=== PATIENT | male | born 1980 | race Caucasian/White ===

== ENCOUNTER 2019-01-12 04:34 | Emergency (ER) | payer BC ==
--- NOTE | 2019-01-12 05:11 | EDM.PDOC ---
ED HPI GENERAL MEDICAL PROBLEM - General Chief Complaint: General Stated Complaint: sore throat, cough Time Seen by Provider: 01/12/19 04:55 Source of Information: Reports: Patient History Limitations: Reports: No Limitations - History of Present Illness INITIAL COMMENTS - FREE TEXT/NARRATIVE: Patient comes to ER with complaint of sore throat. Present for about 3 days. Main complaint is the sore throat. Does not have much of a cough most of the time. No fevers/chills. No GI changes/nausea/diarrhea. No other pain complaint. No significant congestion. No change in hearing or ear discomfort. No other acute changes. Has taken some OTC Robitussin that "helped a bit". Treatments DATA CONVERSION DEVELOPER: Reports: Other Medication(s), Other (see below) Other Treatments DATA CONVERSION DEVELOPER: OTC meds for pain and cough/cold Throat Pain Score (Numeric/FACES): 5 - Related Data Allergies Allergy/AdvReac Type Severity Reaction Status Date / Time No Known Allergies Allergy Verified 01/12/19 04:37 Home Meds: Home Meds Acetaminophen/Codeine [Tylenol with Codeine No.3 300MG/30MG] 1 tab PO Q6H PRN # 7 tab 01/12/19 [Rx] Benzonatate [Tessalon Perle] 100 mg PO Q8H PRN #21 capsule 01/12/19 [Rx] Cholecalciferol (Vitamin D3) [Vitamin D3] 1,000 unit PO DAILY 01/12/19 [History] DULoxetine [Cymbalta] 60 mg PO DAILY 01/12/19 [History] Multivitamin [Multi-Vitamin Daily] 1 each PO DAILY 01/12/19 [History] Preemption-3/DHA/Epa/Fish Oil [Fish Oil 1,000 mg Softgel] 1 each PO DAILY 01/12/19 [ History] buPROPion HCl [Wellbutrin Xl] 300 mg PO DAILY 01/12/19 [History] busPIRone [Buspar] 30 mg PO BID 01/12/19 [History] Past Medical History HEENT History: Reports: Impaired Vision Cardiovascular History: Reports: None Respiratory History: Reports: None Gastrointestinal History: Reports: None Genitourinary History: Reports: None Musculoskeletal History: Reports: Fracture, Other (See Below) Other Musculoskeletal History: history left clavicular fracture Neurological History: Reports: None Psychiatric History: Reports: Anxiety, Depression, Psych Hospitalization(s) Endocrine/Metabolic History: Reports: None Hematologic History: Reports: None Immunologic History: Reports: None Oncologic (Cancer) History: Reports: None Dermatologic History: Reports: None - Infectious Disease History Infectious Disease History: Reports: Chicken Pox - Past Surgical History HEENT Surgical History: Reports: Oral Surgery Cardiovascular Surgical History: Reports: None Respiratory Surgical History: Reports: None GI Surgical History: Reports: None Musculoskeletal Surgical History: Reports: None Social & Family History - Tobacco Use Smoking Status *Q: Never Smoker - Caffeine Use Caffeine Use: Reports: Energy Drinks - Recreational Drug Use Recreational Drug Use: No ED ROS GENERAL - Review of Systems Review Of Systems: Comprehensive ROS is negative, except as noted in HPI. ED EXAM, GENERAL - Physical Exam Exam: See Below Exam Limited By: No Limitations General Appearance: Alert, WD/WN, No Apparent Distress, Other (laying on side resting in ER bed) Eye Exam: Bilateral Eye: EOMI, PERRL Ears: Normal External Exam, Normal Canal, Hearing Grossly Normal, Normal TMs Nose: No: Nasal Drainage Throat/Mouth: Normal Inspection, Normal Lips, Normal Oropharynx, Normal Voice, No Airway Compromise Head: Atraumatic, Normocephalic Neck: Normal Inspection, Supple, Non-Tender, Full Range of Motion. No: Lymphadenopathy (L), Lymphadenopathy (R) Respiratory/Chest: No Respiratory Distress, Lungs Clear, Normal Breath Sounds, No Accessory Muscle Use Cardiovascular: Regular Rate, Rhythm, No Murmur Peripheral Pulses: 2+: Radial (L), Radial (R) GI/Abdominal: Normal Bowel Sounds, Soft, Non-Tender, No Distention (Male) Exam: Deferred Rectal (Males) Exam: Deferred Back Exam: No: CVA Tenderness (L), CVA Tenderness (R) Extremities: Non-Tender, Normal Capillary Refill Neurological: Alert, Oriented, Normal Cognition Psychiatric: Normal Affect, Normal Mood Skin Exam: Warm, Dry, Intact, Normal Color Course - Vital Signs Last Recorded V/S: Last Vital Signs Temp 36.3 C 01/12/19 04:35 Pulse 75 01/12/19 04:35 Resp 18 01/12/19 04:35 BP 145/88 H 01/12/19 04:49 Pulse Ox 100 01/12/19 04:35 - Orders/Labs/Meds Orders: Active Orders 24 hr Category Date Time Status STREP SCRN A RAPID W CULT CONF [RM] Stat Lab 01/12/19 04:52 Received Labs: Laboratory Tests 01/12/19 Range/Units 04:50 WBC 8.5 (4.0-10.2) K/uL RBC 4.81 (4.33-5.41) M/uL Hgb 14.5 (13.1-16.8) g/dL Hct 43.5 (39.0-49.0) % MCV 90.4 (84.0-98.0) fL MCH 30.1 (28.2-33.3) pg MCHC 33.3 (31.7-36.0) g/dL RDW 12.8 (11.2-14.1) % Plt Count 195 (150-350) K/uL Neut % (Auto) 68.5 (45.0-80.0) % Lymph % (Auto) 15.0 (10.0-50.0) % [place] % (Auto) 13.7 (2.0-14.0) % Eos % (Auto) 2.4 (0.0-5.0) % Baso % (Auto) 0.4 (0.0-2.0) % Neut # (Auto) 5.79 (1.40-7.00) K/uL Lymph # (Auto) 1.27 (0.50-3.50) K/uL [place] # (Auto) 1.16 H (0.00-1.00) K/uL Eos # (Auto) 0.20 (0.00-0.50) K/uL Baso # (Auto) 0.03 (0.00-0.20) K/uL - Re-Assessments/Exams Free Text/Narrative Re-Assessment/Exam: Unremarkable exam. CBC normal. Rapid strep normal. URI/viral infection suspected. Will give Tessalon for cough along with 8 Tramadol tabs for pain. Follow up as needed if does not follow a normal viral course. BP elevated when first arrived to ER. Improved. Will recommend follow up rechecks with primary provider. Departure - Departure Time of Disposition: 05:16 Disposition: Home, Self-Care 01 Condition: Good Clinical Impression: Upper respiratory infection, viral - Discharge Information *PRESCRIPTION DRUG MONITORING PROGRAM REVIEWED*: Not Applicable *COPY OF PRESCRIPTION DRUG MONITORING REPORT IN PATIENT DIANN: Not Applicable Prescriptions: Acetaminophen/Codeine [Tylenol with Codeine No.3 300MG/30MG] 1 tab PO Q6H PRN # 7 tab PRN Reason: Pain Benzonatate [Tessalon Perle] 100 mg PO Q8H PRN #21 capsule PRN Reason: Cough Instructions: Viral Respiratory Infection, [id number] Referrals: Rosario Bhardwaj PA-C [Primary Care Provider] - Additional Instructions: Follow up as needed if this does not follow a normal viral course. Viruses usually peak between days 3-6 then should slowly improve. Full improvement can take several weeks, even as much as 6-8 weeks to get rid cough. Warm salt water gargles can help improve sore throat pain as can hot tea (not scalding) - My Orders Last 24 Hours: My Active Orders 01/12/19 04:52 STREP SCRN A RAPID W CULT CONF [RM] Stat - Assessment/Plan Last 24 Hours: My Active Orders 01/12/19 04:52 STREP SCRN A RAPID W CULT CONF [RM] Stat
[2019-01-12] MEDS: Acetaminophen/Codeine 300-30 MG Tab PO ONE (05:33)
== END 2019-01-12 05:40 | disposition home or self-care (01) ==
LOC: LL.ED 04:34
DX: J06.9 Acute upper respiratory infection, unspecified (principal); F41.9 Anxiety disorder, unspecified; F32.9 Major depressive disorder, single episode, unspecified; Z79.899 Other long term (current) drug therapy
CPT/HCPCS: 36415; 85025; 87081; 87430; 99283; A9270-GY